=== PATIENT | female | born 1945 | race Caucasian/White ===

== ENCOUNTER 2024-06-24 15:20 | Emergency (ER) | payer OTHER, SELFPAY ==
[2024-06-24 15:26] VITALS: BP 153/81
[2024-06-24 16:48] VITALS: BMI 23.5
--- NOTE | 2024-06-24 17:05 | ED.MUSCINJ ---
HPI-Injury
General
Chief Complaint: Musculo-Skeletal Complaint
Source: patient
Time Seen by Provider: 06/24/24 16:42
History of Present Illness-Injury
Initial Injury comments:
78-year-old [id number] female presents complaining of left wrist pain and swelling starting today. She got her feet tangled and fell and landed on her left hand. She notes swelling and deformity since then. I get the history from her son
who is a physician but is interpreting. No head strike. No anticoagulants. History of osteopenia. No other complaints at this time
Phy Exam
Physical Exam
Physical Exam:
General: Well-appearing female no acute distress
HEENT: Normocephalic atraumatic
Musculoskeletal exam: Left wrist swollen ecchymotic and tender over the distal radius and ulna. The left elbow is nontender able to move the fingers on the left hand
Neurologic sensation left hand
Vascular: brisk refill
Injury Course
Orders/Labs/Results
Orders:
Orders
06/24/24 15:30
CR Wrist - Left Min 3 Views Urgent
Comment:
Reason For Exam: injury
06/24/24 17:05
[place] Left-Treatment ONCE
MDM/Problems Addressed
Differential Diagnosis Includes:
Left wrist pain after mechanical fall. Question fracture versus dislocation versus sprain
I personally visualized x-rays of the left wrist which demonstrate a comminuted intra-articular fracture of the distal radius with associated distal ulnar fracture. There is mild displacement. No significant angulation. There is impaction.
Patient was placed in a sugar-tong splint will advise she follow-up with orthopedics for next available appointment
*Critical Care Note
Total Time (30-74mins, 75-104mins- exclusive of procedures): Not Applicable
ED Attending Note
-
Portions of this chart may have been created with voice recognition software.� Occasional wrong word or��sound alike� substitutions may have occurred due to the inherent limitations of voice recognition software.
Discharge Plan
Departure
Patient Disposition: Home (Routine Discharge)
Date of Disposition: 06/24/24
Time of Disposition: 17:08
Patient with high blood pressure during this ER visit?: No
Discharge Problem:
Closed fracture distal radius and ulna
Instructions: Muscle and Bone Pain (DC)
Referrals:
Stanislaw Puentes MD [Active] -
Activity Restrictions/Additional Instructions:
Keep splint on and dry. Elevate for swelling. Use ibuprofen or Tylenol for pain. Follow-up with orthopedics for next available appointment
Interventions
Interventions:
*Risk Screen - Suicide Last Done: 06/24/24 15:26
*General Assessment Last Done: 06/24/24 15:26
*Neglect/Abuse Screening Last Done: 06/24/24 15:26
*ED COVID-19 Vaccine History Last Done: 06/24/24 16:48
ED-Musculoskeletal Assessment Last Done: 06/24/24 16:48
Discharge Date and Time
Print Language: FRENCH
== END 2024-06-24 18:06 | disposition home or self-care (01) ==
LOC: EMR 15:20
PROVIDERS: EMERGENCY PHYSICIAN Emergency Medicine; FAMILY PHYSICIAN Internal Medicine Cardiovascular Disease
DX: S52.592A Other fractures of lower end of left radius, initial encounter for closed fracture (principal); S52.692A Other fracture of lower end of left ulna, initial encounter for closed fracture; W19.XXXA Unspecified fall, initial encounter
CPT/HCPCS: 99283; 29125; 73110